=== PATIENT | female | born 1945 | race Caucasian/White ===

== ENCOUNTER 2023-12-21 19:19 | Emergency (ER) | payer MEDICARE, SELFPAY ==
[2023-12-21 19:21] VITALS: BP 132/78
[2023-12-21 20:23] VITALS: BMI 36.0
--- NOTE | 2023-12-21 22:05 | ED.MUSCINJ ---
HPI-Injury
General
Chief Complaint: Fall
Source: patient, ambulance crew and halfway records
Exam Limitations: none
Time Seen by Provider: 12/21/23 21:57
Nursing documentation reviewed up to this point in time: agreed with
Travel History
Have you had any contact with someone who has COVID-19?: No
Do you have any symptoms of coronavirus? Fever > 100 degrees, chills, cough, shortness of breath, sore throat, loss of taste or smell, muscle aches, or headache?: No
History of Present Illness-Injury
Initial Injury comments:
Patient states she lost her footing and fell. Hit head on floor. No LOC. Has hemtoma to posterior scalp. Complains of pain to right shoulder, right lat ribs, right knee and low back. Incident occurred just IN [facility]. Brought to ED via EMS for eval.,
Past History
Past History
ED Past Medical History: CHF, GERD, Hypercholesterolemia, Seizures (EPILEPSY) and Psychiatric (depression, SAH)
ED Past Surgical History: None
Review of Systems
Review of Systems
Allergies reviewed?: Yes
All Other Systems: ROS reviewed and negative except as documented in HPI and ROS
Constitutional: Reports no symptoms
EENT: Reports no symptoms
Respiratory: Reports no symptoms
Cardiac: Reports no symptoms
ABD/GI: Reports no symptoms
: Reports no symptoms
Musculoskeletal: Reports joint pain (pain right shoulder, right lateral ribs, low back, right knee)
Skin: Reports other (hematoma to posterior scalp)
Neurological: Reports no symptoms
Psychiatric: Reports no symptoms
Musculoskeletal Injury Exam
Musculoskeletal Injury Exam
Right Shoulder:
Pain with Movement?: Moderate
Tender to palpation?: Moderate
Soft tissue swelling?: None
External deformity and angulation?: None
Joint effusion?: None
Contusion?: Moderate
Hematoma-local bleeding into tissue?: None
Strain- Sprain- Tear (Connective tissue injury)?: Moderate
Crepitus with movement?: No
Joint instability?: No
Malalignment/deformity?: No
Range of motion: Limited
Distal skin color and temperature: normal-warm & good color
Capillary Refill: normal
Normal distal neurovascular exam?: Yes
Peripheral Pulses: radial (right): 3+
Bilateral Lower Back:
Pain with Movement?: Mild
Tender to palpation?: Mild
Soft tissue swelling?: None
External deformity and angulation?: None
Joint effusion?: None
Contusion?: Mild
Hematoma-local bleeding into tissue?: None
Strain- Sprain- Tear (Connective tissue injury)?: Mild
Crepitus with movement?: No
Malalignment/deformity?: No
Range of motion: Limited
Distal skin color and temperature: normal-warm & good color
Capillary Refill: normal
Normal distal neurovascular exam?: Yes
Right Knee:
Pain with Movement?: Mild
Tender to palpation?: Mild
Soft tissue swelling?: None
External deformity and angulation?: None
Joint effusion?: None
Contusion?: None
Hematoma-local bleeding into tissue?: None
Strain- Sprain- Tear (Connective tissue injury)?: Mild
Crepitus with movement?: No
Joint instability?: No
Malalignment/deformity?: No
Range of motion: Full
Distal skin color and temperature: normal-warm & good color
Capillary Refill: normal
Normal distal neurovascular exam?: Yes
Right Lateral Chest:
Pain with Movement?: Mild
Tender to palpation?: Mild
Soft tissue swelling?: None
External deformity and angulation?: None
Joint effusion?: None
Contusion?: Mild
Hematoma-local bleeding into tissue?: None
Strain- Sprain- Tear (Connective tissue injury)?: None
Crepitus with movement?: No
Joint instability?: No
Malalignment/deformity?: No
Range of motion: Full
Distal skin color and temperature: normal-warm & good color
Capillary Refill: normal
Normal distal neurovascular exam?: Yes
Phy Exam
General Physical Exam
General Presentation: well appearing and no apparent distress
General age: appears stated age
General Skin: warm and dry
General Habitus: normal
Cardiovascular Exam
Cardiovascular Exam: regular rate/rhythm and no edema
Pulmonary Exam
Pulmonary Exam: lungs clear and no respiratory distress
Gastrointestinal Exam
Gastrointestinal Exam: normal bowel sounds, non tender, soft, no organomegaly, non distended and no cva tenderness
Neurological Exam
Neurological Exam: alert, oriented x3, CN II-XII intact, no motor deficits, no sensory deficits and speech normal
Regulo Coma Scale
Eye Opening: Spontaneous
Verbal Response: Oriented
Motor Response: Obeys Commands
GCS Total Score: 15
Musculoskeletal Exam
Musculoskeletal Exam: neuro vasc intact
Skin Exam
Skin Exam: normal color, warm/dry and no rash
Psychiatric Exam
Psychiatric Exam: normal mood/affect
Injury Course
Orders/Labs/Results
Orders:
Orders
12/21/23
Electrocardiogram (*1) Stat
Comment: DONE EMR
12/21/23 19:31
Ribs, Right 3 View W/PA Chest [CR Ribs-right 3 Vw W/pa Chest*] Urgent
Comment:
Reason For Exam: fall
Trauma Shoulder, Right CR [CR Shoulder, Trauma - Right] Urgent
Comment:
Reason For Exam: fall
12/21/23 19:32
CR Knee- Right 4 Or More View* Urgent
Reason For Exam: fall
12/21/23 22:04
CT Head W/o Iv Contrast Urgent
Comment:
Reason For Exam: fall
Cervical Spine wo Contrast CT [CT Cervical Spine W/o Iv Contr] Urgent
Comment:
Reason For Exam: fall
Lumbar Spine Complete, 4 View [CR Lumbar Spine Comp Min 4 Vw*] Urgent
Comment:
Reason For Exam: fall
12/22/23 00:01
Acetaminophen [Tylenol] 1,000 mg PO NOW STA
*Radiology
Radiology exam reviewed: radiology read reviewed
*Pulse Oximetry
Patient hypoxic: no
*Critical Care Note
Total Time (30-74mins, 75-104mins- exclusive of procedures): Not Applicable
ED Attending Note
-
Portions of this chart may have been created with voice recognition software.� Occasional wrong word or��sound alike� substitutions may have occurred due to the inherent limitations of voice recognition software.
Discharge Plan
Departure
Patient Disposition: Home (Routine Discharge)
Date of Disposition: 12/22/23
Time of Disposition: 00:08
Patient with high blood pressure during this ER visit?: No
Condition: Good
Covid-19: Not Applicable
Discharge Problem:
Head injury
Instructions: Head Injury in Adults (DC), Contusion (DC), Preventing falls in adults, shoulder
Prescriptions:
No Action
atorvastatin [Lipitor] 40 mg Tablet
40 mg PO QPM
cetirizine [Zyrtec] 10 mg Tablet
10 mg PO DAILY
oxybutynin chloride 10 mg Tablet Extended Release 24hr
10 mg PO DAILY
phenytoin sodium extended 100 mg Capsule
200 mg PO BID
acetaminophen [Tylenol Extra Strength] 500 mg Tablet
500 mg PO Q6H PRN (Reason: mild pain)
cyanocobalamin (vitamin B-12) 500 mcg Tablet
500 mcg PO BID
furosemide [Lasix] 80 mg Tablet
80 mg PO DAILY
ferrous sulfate 325 mg (65 mg iron) Tablet
325 mg PO DAILY
aspirin 81 mg Tablet,Chewable
81 mg PO DAILY
folic acid 1 mg Tablet
1 mg PO DAILY
allopurinol 300 mg Tablet
300 mg PO BID
ondansetron [Zofran ODT] 4 mg Tablet,Disintegrating
4 mg PO Q8HPRN PRN (Reason: nausea)
fluticasone propionate [Flonase Allergy Relief] 50 mcg/actuation [place],Suspension
2 spray INTRANASAL DAILY
sertraline 50 mg Tablet
50 mg PO DAILY
diclofenac sodium [Voltaren] 1 % Gel
4 g TOPICAL BID
potassium chloride 20 mEq Tablet Extended Release
20 meq PO DAILY
Referrals:
Travis Rivera MD [Active] - Call in 1-3 days for appt
Adele He CRNP [Family Provider] -
Interventions
Interventions:
*Risk Screen - Suicide Last Done: 12/21/23 19:21
*General Assessment Last Done: 12/21/23 19:21
*Neglect/Abuse Screening Last Done: 12/21/23 19:21
*ED COVID-19 Vaccine History Last Done: 12/21/23 19:21
*Nursing Disposition Last Done: 12/22/23 01:03
ED-Musculoskeletal Assessment Last Done: 12/21/23 20:26
ED- Neurological Assessment Last Done: 12/21/23 20:26
ED-Skin Assessment Last Done: 12/21/23 20:26
Discharge Date and Time
Discharge Date/Time: 12/22/23 01:04
[2023-12-21 23:19] VITALS: BP 147/66
[2023-12-22] MEDS: TYLENOL 1000 MG PO (00:38)
== END 2023-12-22 01:04 | disposition home or self-care (01) ==
LOC: EMR 19:19
PROVIDERS: EMERGENCY PHYSICIAN Emergency Medicine; FAMILY PHYSICIAN Nurse Practitioner Family
DX: S43.401A Unspecified sprain of right shoulder joint, initial encounter (principal); S83.91XA Sprain of unspecified site of right knee, initial encounter; S33.5XXA Sprain of ligaments of lumbar spine, initial encounter; S40.011A Contusion of right shoulder, initial encounter; S30.0XXA Contusion of lower back and pelvis, initial encounter; S20.211A Contusion of right front wall of thorax, initial encounter; S00.03XA Contusion of scalp, initial encounter; W18.39XA Other fall on same level, initial encounter; Y92.120 Kitchen in nursing home as the place of occurrence of the external cause; I50.9 Heart failure, unspecified; G40.909 Epilepsy, unspecified, not intractable, without status epilepticus; K21.9 Gastro-esophageal reflux disease without esophagitis; E78.00 Pure hypercholesterolemia, unspecified; F32.A Depression, unspecified; G47.30 Sleep apnea, unspecified; N32.81 Overactive bladder
CPT/HCPCS: 99284; 70450; 71101; 72110; 72125; 73030; 73564; 93005

== ENCOUNTER → 2023-12-28 11:56 | Outpatient (REF) | payer MEDICARE, SELFPAY | LOC: RAD 11:56 | PROVIDERS: ATTENDING PHYSICIAN Internal Medicine | DX: M79.651 Pain in right thigh (principal) | CPT/HCPCS: 73552 ==

== ENCOUNTER 2023-12-29 08:32 | Emergency (ER) | payer MEDICARE, SELFPAY ==
[2023-12-29 08:33] VITALS: BP 159/77
--- NOTE | 2023-12-29 09:12 | ED.GENMED ---
History of Present Illness
General
Chief Complaint: Fall
Source: patient and ambulance crew
Exam Limitations: none
Time Seen by Provider: 12/29/23 08:41
Nursing documentation reviewed up to this point in time: agreed with except (pt denies ankle pain)
Travel History
Have you had any contact with someone who has COVID-19?: No
Do you have any symptoms of coronavirus? Fever > 100 degrees, chills, cough, shortness of breath, sore throat, loss of taste or smell, muscle aches, or headache?: No
History of Present Illness
History of Present Illness:
pt is a 78 y/o F from [facility] after having continued right knee pain an dmore swelling after fall on 12/21. pt was seen here that day. she says she wasn't using her walker and her right knee gave out causing her to fall and land on
her right side. she struck her head
she was seen here and had ct head, xray of knee which were neg.
pt has been walking around using her walker but noticed yesterday that her right knee was more swollen and a litte more painful
she had xrays of femur but doesn't know the results
pt has chronic lymphedema in her legs and says her lower leg swelling is chronic an dnot significantly changed from baseline
she is worried about a blood clot
no meds taken for pain today
Past History
Past History
ED Past Medical History: CHF, GERD, Hypercholesterolemia, Seizures (EPILEPSY) and Psychiatric (depression, SAH)
ED Past Surgical History: None
Review of Systems
Review of Systems
Allergies reviewed?: Yes
All Other Systems: Not applicable
Phy Exam
Physical Exam
Physical Exam:
GENERAL: Alert , in no apparent distress, comfortable at rest
HEAD: NCAT
CV: chronic lymphedema b/l
NEUROLOGICAL: Alert and oriented, no focal neuro deficits, , 5/5 strength, sensation intact,
SKIN: Warm and dry, slight b/l LE pink skin changes; not warm
MUSCULOSKELETAL: Right hip nontender, right femur, nontender, right knee moderately swollen, limited painful flexion, patient is able to straight leg raise only 10 degrees off the bed but her legs are large due to her lymphedema and not even on the
opposite side she cannot fully straight leg raise, the lower extremity has moderate to severe swelling especially within her upper calf and then she has a more narrow ankle and then more edema in her foot. This apparently is normal for her. She
has no tenderness
There is no tenderness to either ankle, foot
PSYCH: Normal and appropriate interaction.
Course
Orders/Labs/Results
Orders:
Orders
12/29/23 09:07
Acetaminophen [Tylenol] 650 mg PO NOW STA
CR Knee- Right 4 Or More View* Urgent
Comment:
Reason For Exam: right knee pain after fall, worsening
Venous Doppler Lwr Ext Rt [[facility] Venous LOWER Ext RT] Urgent
Comment:
Reason For Exam: right leg sweling after fall, h/o lymphedema
Vital Signs
Initial and Last Documented VS:
Initial Vital Signs
Temp Pulse Resp BP Pulse Ox
98.3 F 85 16 159/77 97
12/29/23 08:33 12/29/23 08:33 12/29/23 08:33 12/29/23 08:33 12/29/23 08:33
Last Documented Vital Signs
Temp Pulse Resp BP Pulse Ox
98.3 F 76 20 122/76 98
12/29/23 08:33 12/29/23 11:48 12/29/23 11:48 12/29/23 11:48 12/29/23 11:48
MDM/Problems Addressed
Differential Diagnosis Includes:
Knee injury, ambulatory dysfunction, meniscal tear
MDM/Problems Addressed:
78-year-old female with persistent right knee pain after a fall on 2�16. She initially had x-rays showing no obvious trauma, there is chronic arthritic changes . She was able to walk on it a little bit better but has had worsening pain over the
last 2 days. Now she is more swollen in the knee area. She has chronic lymphedema making it difficult to assess her lower extremity swelling but she does not feel like it is any change from baseline on exam the patient has swelling of the knee
without any overlying skin changes, she does have painful limited flexion of the knee, and I am able to passively range her with discomfort, 10 to 20 degrees, she has limited straight leg raise on, this may be due to body habitus. Patient's x-ray
shows chronic arthritic changes plus a possibly likely chronic medial meniscal tear; pt was able to get up and take steps slowly with walker; no dvt on US; pt can be discharged to faciliyt with ortho f/u and use of wheelchair while it is difficult
tow alk;
*Critical Care Note
Total Time (30-74mins, 75-104mins- exclusive of procedures): Not Applicable
ED Attending Note
-
Portions of this chart may have been created with voice recognition software.� Occasional wrong word or��sound alike� substitutions may have occurred due to the inherent limitations of voice recognition software.
Discharge Plan
Departure
Patient Disposition: [facility]sp/SNF
Date of Disposition: 12/29/23
Time of Disposition: 11:26
Patient with high blood pressure during this ER visit?: Yes
Condition: Fair
Covid-19: Not Applicable
Discharge Problem:
Effusion of knee, Arthritis of knee, Chronic meniscal tear of knee
Instructions: Chronic Knee Pain (DC)
Prescriptions:
No Action
atorvastatin [Lipitor] 40 mg Tablet
40 mg PO QPM
cetirizine [Zyrtec] 10 mg Tablet
10 mg PO DAILY
oxybutynin chloride 10 mg Tablet Extended Release 24hr
10 mg PO DAILY
phenytoin sodium extended 100 mg Capsule
200 mg PO BID
acetaminophen [Tylenol Extra Strength] 500 mg Tablet
500 mg PO Q6H PRN (Reason: mild pain)
cyanocobalamin (vitamin B-12) 500 mcg Tablet
500 mcg PO BID
furosemide [Lasix] 80 mg Tablet
80 mg PO DAILY
ferrous sulfate 325 mg (65 mg iron) Tablet
325 mg PO DAILY
aspirin 81 mg Tablet,Chewable
81 mg PO DAILY
folic acid 1 mg Tablet
1 mg PO DAILY
allopurinol 300 mg Tablet
300 mg PO BID
ondansetron [Zofran ODT] 4 mg Tablet,Disintegrating
4 mg PO Q8HPRN PRN (Reason: nausea)
fluticasone propionate [Flonase Allergy Relief] 50 mcg/actuation [place],Suspension
2 spray INTRANASAL DAILY
sertraline 50 mg Tablet
50 mg PO DAILY
diclofenac sodium [Voltaren] 1 % Gel
4 g TOPICAL BID
potassium chloride 20 mEq Tablet Extended Release
20 meq PO DAILY
Referrals:
BRITNI ZHANG MD [Family Provider] -
Activity Restrictions/Additional Instructions:
Patrizia has no fractures but she has severe arthritis and she probably has a meniscal tear which was seen on x-ray. There is no clot in the leg. Tylenol every 6 hours as needed for pain and follow-up with orthopedics as recommended. While she is in
this amount of discomfort she should use her wheelchair more. She was able to stand and walk with a walker
Interventions
Interventions:
*Risk Screen - Suicide Last Done: 12/29/23 09:30
*General Assessment Last Done: 12/29/23 09:30
*Neglect/Abuse Screening Last Done: 12/29/23 09:30
*ED COVID-19 Vaccine History Last Done: 12/29/23 08:33
*Nursing Disposition Last Done: 12/29/23 11:57
ED-Musculoskeletal Assessment Last Done: 12/29/23 09:30
ED- Neurological Assessment Last Done: 12/29/23 09:30
ED-Skin Assessment Last Done: 12/29/23 09:30
Discharge Date and Time
Discharge Date/Time: 12/29/23 11:58
[2023-12-29] MEDS: TYLENOL 650 MG PO (10:36)
[2023-12-29 11:48] VITALS: BP 122/76
== END 2023-12-29 11:58 ==
LOC: EMR 08:32
PROVIDERS: EMERGENCY PHYSICIAN Emergency Medicine; FAMILY PHYSICIAN Internal Medicine
DX: M25.461 Effusion, right knee (principal); M79.604 Pain in right leg; M17.11 Unilateral primary osteoarthritis, right knee; M23.203 Derangement of unspecified medial meniscus due to old tear or injury, right knee; W19.XXXA Unspecified fall, initial encounter; R03.0 Elevated blood-pressure reading, without diagnosis of hypertension; I89.0 Lymphedema, not elsewhere classified; I50.9 Heart failure, unspecified; K21.9 Gastro-esophageal reflux disease without esophagitis; E78.00 Pure hypercholesterolemia, unspecified; F32.A Depression, unspecified; G40.909 Epilepsy, unspecified, not intractable, without status epilepticus; G47.30 Sleep apnea, unspecified; N32.81 Overactive bladder; Z79.82 Long term (current) use of aspirin; Z88.2 Allergy status to sulfonamides; Z88.1 Allergy status to other antibiotic agents; Z91.030 Bee allergy status
CPT/HCPCS: 99284; 73564; 93971

== ENCOUNTER → 2024-01-07 13:32 | Outpatient (REF) | payer OTHER, SELFPAY ==
[2024-01-07 14:05] LABS: % Basophils 0.6 % (0-2); % Eosinophils 7.6 % (0-6); % Immature Granulocytes 0.6 % (0-0.5); % Lymphocytes 24.2 % (20.5-51.1); % Monocytes 11.3 % (1.7-9.3); % Neutrophils 55.7 % (42.2-75.2); Absolute Eosinophils 0.5 10^3/uL (0-0.7); Absolute Lymphocytes 1.6 10^3/uL (1.2-3.4); Absolute Monocytes 0.7 10^3/uL (0.1-0.6); Absolute Neutrophils 3.6 10^3/uL (1.4-6.5); Hematocrit 29.2 % (37.0-47.0); Hemoglobin 9.8 g/dL (12.0-16.0); Mean Corp Hgb Conc. 33.6 g/dL (33.0-37.0); Mean Corpuscular Hgb 31.9 pg (27.0-31.0); Mean Corpuscular Volume 95.1 fL (81.0-99.0); Mean Platelet Volume 11.2 fL (7.4-10.4); Nucleated Red Blood Cells % 0 %; Platelet Count 208 10^3/uL (130-400); Red Blood Cell Count 3.07 10^6/uL (4.20-5.40); Red Cell Dist. Width 15.7 % (11.5-14.5); White Blood Cell Count 6.4 10^3/uL (4.8-10.8)
[2024-01-07 14:31] LABS: Blood Urea Nitrogen 33 mg/dl (7-17); Calcium 8.5 mg/dl (8.4-10.2); Carbon Dioxide 26 mmol/L (22-30); Chloride 101 mmol/L (98-107); Glucose 100 mg/dl (70-99); Potassium 3.8 mmol/L (3.5-5.1); Sodium 133 mmol/L (135-145); eGFR 51.11
== END ==
LOC: OLABP 13:32
PROVIDERS: ATTENDING PHYSICIAN Family Medicine
DX: G40.901 Epilepsy, unspecified, not intractable, with status epilepticus (principal); S72.111D Displaced fracture of greater trochanter of right femur, subsequent encounter for closed fracture with routine healing; J90 Pleural effusion, not elsewhere classified; I50.9 Heart failure, unspecified
CPT/HCPCS: 36415; 80048; 85025

== ENCOUNTER → 2024-04-08 11:50 | Outpatient (REF) | payer OTHER, SELFPAY ==
[2024-04-08 13:09] LABS: Hemoglobin 9.3 g/dL (12.0-16.0); Mean Corp Hgb Conc. 33.2 g/dL (33.0-37.0); Mean Corpuscular Hgb 33.2 pg (27.0-31.0); Mean Platelet Volume 11.4 fL (7.4-10.4); Platelet Count 220 10^3/uL (130-400); Red Cell Dist. Width 15.7 % (11.5-14.5); White Blood Cell Count 6.9 10^3/uL (4.8-10.8)
[2024-04-08 13:41] LABS: Blood Urea Nitrogen 35 mg/dl (7-17); Calcium 8.6 mg/dl (8.4-10.2); Carbon Dioxide 31 mmol/L (22-30); Chloride 100 mmol/L (98-107); Glucose 112 mg/dl (70-99); Potassium 4.2 mmol/L (3.5-5.1); Sodium 137 mmol/L (135-145); eGFR 57.31
== END ==
LOC: OLABP 11:50
PROVIDERS: ATTENDING PHYSICIAN Family Medicine
DX: N39.0 Urinary tract infection, site not specified (principal); H81.10 Benign paroxysmal vertigo, unspecified ear; E87.6 Hypokalemia; R07.89 Other chest pain; I50.32 Chronic diastolic (congestive) heart failure; E83.52 Hypercalcemia; M62.81 Muscle weakness (generalized); I87.2 Venous insufficiency (chronic) (peripheral); I10 Essential (primary) hypertension
CPT/HCPCS: 36415; 80048; 85027

== ENCOUNTER → 2024-04-11 17:07 | Outpatient (REF) | payer OTHER, SELFPAY ==
[2024-04-11 18:38] LABS: Dilantin 32.2 ug/ml (10-20)
== END ==
LOC: OLABP 17:07
PROVIDERS: ATTENDING PHYSICIAN Family Medicine
DX: H81.10 Benign paroxysmal vertigo, unspecified ear (principal); E83.52 Hypercalcemia; M62.81 Muscle weakness (generalized); I10 Essential (primary) hypertension
CPT/HCPCS: 36415; 80185

== ENCOUNTER → 2024-07-30 11:14 | Outpatient (REF) | payer MEDICARE, SELFPAY | LOC: HWRAD 11:14 | PROVIDERS: ATTENDING PHYSICIAN Orthopaedic Surgery Hand Surgery; FAMILY PHYSICIAN Family Medicine | DX: S42.291K Other displaced fracture of upper end of right humerus, subsequent encounter for fracture with nonunion (principal) | CPT/HCPCS: 73200 ==

== ENCOUNTER → 2024-11-12 10:47 | Outpatient (REF) | payer OTHER, SELFPAY ==
--- NOTE | 2024-11-13 20:18 | EEGC.RPT ---
Continuous EEG Report
Recording
Start Date of Data Reviewed: 11/12/24
End Date of Data Reviewed: 11/12/24
Done with Video Recording: Yes
Electrocardiogram: Unremarkable
Report
�TECHNICAL REMARKS:��This is a technically satisfactory eighteen channel record employing 21 disc electrodes applied according to a measured international 10-20 electrode placement system.��There were no significant technical difficulties.��The
study was done on a [employer] System.
�
CLINICAL INFORMATION: This is an 81-year-old woman with history of seizures. �This study was requested to look for epileptiform activity.
STUDY DURATION:� 29 min,�35 secs
�
MEDICATIONS: Phenytoin, Sertraline
�
REPORT: �At the onset of the EEG, the patient is awake. The background activity consists of 9-10Hz, persistent, posteriorly dominant, moderate amplitude, symmetric, and rhythmic activity. Anteriorly, it consists of a mixture of low voltage
indeterminate activity and 20-25 Hz, persistent, low amplitude, symmetric, and rhythmic activity. Intermittent generalized 1.5-2 Hz 15-20 microvolts activity lasting for 1-2 seconds with maximal amplitude in the bifrontal area is present. Stepwise
intermittent photic stimulation (1-31 Hz) does not induce any abnormalities. Hyperventilation is not performed. Drowsiness is characterized by low amplitude mixed frequency activity, roving eye movements, and decreased eye blinking and muscle
artifact.
�
IMPRESSION: �This is an abnormal awake and drowsy EEG due to a background slowing and intermittent diffuse slowing indicating the presence of a moderate encephalopathy, but nonspecific in terms of etiology. There is no evidence of focal slowing or
epileptiform activity.
== END ==
LOC: RCS 10:47
PROVIDERS: ATTENDING PHYSICIAN Psychiatry & Neurology Neurology; FAMILY PHYSICIAN Nurse Practitioner Family
DX: R56.9 Unspecified convulsions (principal)
CPT/HCPCS: 95816

== ENCOUNTER → 2024-12-08 12:47 | Outpatient (REF) | payer OTHER, SELFPAY | LOC: MRI 3T 12:47 | PROVIDERS: ATTENDING PHYSICIAN Psychiatry & Neurology Neurology | DX: R29.6 Repeated falls (principal) | CPT/HCPCS: 70551 ==

== ENCOUNTER → 2025-03-31 11:05 | Outpatient (REF) | payer BC, OTHER, SELFPAY ==
[2025-03-31 13:12] LABS: % Basophils 0.5 % (0-2); % Eosinophils 7.4 % (0-6); % Immature Granulocytes 0.4 % (0-0.5); % Lymphocytes 32.4 % (20.5-51.1); % Monocytes 7.3 % (1.7-9.3); Absolute Basophils 0.1 10^3/uL (0-0.2); Absolute Eosinophils 0.7 10^3/uL (0-0.7); Absolute Monocytes 0.7 10^3/uL (0.1-0.6); Absolute Neutrophils 4.8 10^3/uL (1.4-6.5); Hematocrit 25.4 % (37.0-47.0); Hemoglobin 8.4 g/dL (12.0-16.0); Mean Corp Hgb Conc. 33.1 g/dL (33.0-37.0); Mean Corpuscular Hgb 33.3 pg (27.0-31.0); Mean Corpuscular Volume 100.8 fL (81.0-99.0); Mean Platelet Volume 11.1 fL (7.4-10.4); Nucleated Red Blood Cells % 0 %; Platelet Count 220 10^3/uL (130-400); Red Blood Cell Count 2.52 10^6/uL (4.20-5.40); Red Cell Dist. Width 16.2 % (11.5-14.5); White Blood Cell Count 9.2 10^3/uL (4.8-10.8)
[2025-03-31 13:25] LABS: Blood Urea Nitrogen 23 mg/dl (7-17); Calcium 8.6 mg/dl (8.4-10.2); Carbon Dioxide 29 mmol/L (22-30); Chloride 106 mmol/L (98-107); Glucose 117 mg/dl (70-99); Potassium 4.1 mmol/L (3.5-5.1); Sodium 138 mmol/L (135-145); eGFR > 60.00
== END ==
LOC: OLABP 11:05
PROVIDERS: ATTENDING PHYSICIAN Family Medicine
DX: M16.12 Unilateral primary osteoarthritis, left hip (principal); I87.2 Venous insufficiency (chronic) (peripheral); I50.32 Chronic diastolic (congestive) heart failure; H81.10 Benign paroxysmal vertigo, unspecified ear; M10.9 Gout, unspecified; I10 Essential (primary) hypertension
CPT/HCPCS: 36415; 80048; 85025

== ENCOUNTER → 2025-04-07 13:00 | Outpatient (REF) | payer BC, OTHER, SELFPAY ==
[2025-04-07 13:23] LABS: % Basophils 0.8 % (0-2); % Eosinophils 7.3 % (0-6); % Immature Granulocytes 0.3 % (0-0.5); % Lymphocytes 38.2 % (20.5-51.1); % Monocytes 8.3 % (1.7-9.3); % Neutrophils 45.1 % (42.2-75.2); Absolute Basophils 0.1 10^3/uL (0-0.2); Absolute Eosinophils 0.6 10^3/uL (0-0.7); Absolute Lymphocytes 2.9 10^3/uL (1.2-3.4); Absolute Monocytes 0.6 10^3/uL (0.1-0.6); Absolute Neutrophils 3.5 10^3/uL (1.4-6.5); Hematocrit 28.3 % (37.0-47.0); Hemoglobin 9.1 g/dL (12.0-16.0); Mean Corp Hgb Conc. 32.2 g/dL (33.0-37.0); Mean Corpuscular Hgb 33.2 pg (27.0-31.0); Mean Corpuscular Volume 103.3 fL (81.0-99.0); Mean Platelet Volume 10.5 fL (7.4-10.4); Nucleated Red Blood Cells % 0 %; Platelet Count 254 10^3/uL (130-400); Red Blood Cell Count 2.74 10^6/uL (4.20-5.40); Red Cell Dist. Width 17.1 % (11.5-14.5); White Blood Cell Count 7.7 10^3/uL (4.8-10.8)
== END ==
LOC: OLABP 13:00
PROVIDERS: ATTENDING PHYSICIAN Family Medicine
DX: M16.12 Unilateral primary osteoarthritis, left hip (principal); I87.2 Venous insufficiency (chronic) (peripheral); I50.32 Chronic diastolic (congestive) heart failure; I10 Essential (primary) hypertension; S32.501A Unspecified fracture of right pubis, initial encounter for closed fracture; S42.91XA Fracture of right shoulder girdle, part unspecified, initial encounter for closed fracture
CPT/HCPCS: 36415; 85025

== ENCOUNTER → 2025-04-16 11:42 | Outpatient (REF) | payer BC, OTHER, SELFPAY ==
[2025-04-16 13:34] LABS: % Basophils 0.7 % (0-2); % Eosinophils 8.8 % (0-6); % Immature Granulocytes 0.1 % (0-0.5); % Lymphocytes 31.2 % (20.5-51.1); % Monocytes 7.2 % (1.7-9.3); Absolute Basophils 0.1 10^3/uL (0-0.2); Absolute Eosinophils 0.6 10^3/uL (0-0.7); Absolute Lymphocytes 2.2 10^3/uL (1.2-3.4); Absolute Monocytes 0.5 10^3/uL (0.1-0.6); Absolute Neutrophils 3.7 10^3/uL (1.4-6.5); Hematocrit 27.1 % (37.0-47.0); Hemoglobin 8.8 g/dL (12.0-16.0); Mean Corp Hgb Conc. 32.5 g/dL (33.0-37.0); Mean Corpuscular Hgb 33.1 pg (27.0-31.0); Mean Corpuscular Volume 101.9 fL (81.0-99.0); Mean Platelet Volume 10.2 fL (7.4-10.4); Nucleated Red Blood Cells % 0 %; Platelet Count 210 10^3/uL (130-400); Red Blood Cell Count 2.66 10^6/uL (4.20-5.40); Red Cell Dist. Width 16.4 % (11.5-14.5); White Blood Cell Count 7.1 10^3/uL (4.8-10.8)
== END ==
LOC: OLABP 11:42
PROVIDERS: ATTENDING PHYSICIAN Family Medicine
DX: S32.501A Unspecified fracture of right pubis, initial encounter for closed fracture (principal); S32.039A Unspecified fracture of third lumbar vertebra, initial encounter for closed fracture; M16.12 Unilateral primary osteoarthritis, left hip; I87.2 Venous insufficiency (chronic) (peripheral); I50.32 Chronic diastolic (congestive) heart failure; H81.10 Benign paroxysmal vertigo, unspecified ear; M10.9 Gout, unspecified; I10 Essential (primary) hypertension
CPT/HCPCS: 36415; 85025

== ENCOUNTER → 2025-04-21 11:34 | Outpatient (REF) | payer BC, OTHER, SELFPAY ==
[2025-04-21 11:48] LABS: % Basophils 1.2 % (0-2); % Eosinophils 9.7 % (0-6); % Immature Granulocytes 0.1 % (0-0.5); % Lymphocytes 33.3 % (20.5-51.1); % Monocytes 6.9 % (1.7-9.3); % Neutrophils 48.8 % (42.2-75.2); Absolute Basophils 0.1 10^3/uL (0-0.2); Absolute Eosinophils 0.7 10^3/uL (0-0.7); Absolute Lymphocytes 2.2 10^3/uL (1.2-3.4); Absolute Monocytes 0.5 10^3/uL (0.1-0.6); Absolute Neutrophils 3.3 10^3/uL (1.4-6.5); Hematocrit 25.1 % (37.0-47.0); Hemoglobin 8.6 g/dL (12.0-16.0); Mean Corp Hgb Conc. 34.3 g/dL (33.0-37.0); Mean Corpuscular Hgb 34.5 pg (27.0-31.0); Mean Corpuscular Volume 100.8 fL (81.0-99.0); Mean Platelet Volume 11.4 fL (7.4-10.4); Nucleated Red Blood Cells % 0 %; Platelet Count 178 10^3/uL (130-400); Red Blood Cell Count 2.49 10^6/uL (4.20-5.40); Red Cell Dist. Width 15.8 % (11.5-14.5); White Blood Cell Count 6.7 10^3/uL (4.8-10.8)
== END ==
LOC: OLABP 11:34
PROVIDERS: ATTENDING PHYSICIAN Family Medicine
DX: M16.12 Unilateral primary osteoarthritis, left hip (principal); I87.2 Venous insufficiency (chronic) (peripheral); I10 Essential (primary) hypertension
CPT/HCPCS: 36415; 85025

== ENCOUNTER → 2025-04-22 11:30 | Outpatient (REF) | payer BC, OTHER, SELFPAY ==
[2025-04-22 12:35] LABS: Blood Urea Nitrogen 29 mg/dl (7-17); Calcium 8.7 mg/dl (8.4-10.2); Carbon Dioxide 29 mmol/L (22-30); Chloride 107 mmol/L (98-107); Glucose 113 mg/dl (70-99); Potassium 4.4 mmol/L (3.5-5.1); Sodium 140 mmol/L (135-145); eGFR 56.95
== END ==
LOC: OLABP 11:30
PROVIDERS: ATTENDING PHYSICIAN Family Medicine
DX: M16.12 Unilateral primary osteoarthritis, left hip (principal); I87.2 Venous insufficiency (chronic) (peripheral); I50.32 Chronic diastolic (congestive) heart failure; H81.10 Benign paroxysmal vertigo, unspecified ear; M10.9 Gout, unspecified; I10 Essential (primary) hypertension
CPT/HCPCS: 36415; 80048

== ENCOUNTER → 2025-06-18 12:57 | Outpatient (REF) | payer OTHER, SELFPAY | LOC: RCS 12:57 | PROVIDERS: ATTENDING PHYSICIAN Student in an Organized Health Care Education/Training Program; FAMILY PHYSICIAN Internal Medicine | DX: R06.09 Other forms of dyspnea (principal) | CPT/HCPCS: 93306 ==

== ENCOUNTER 2025-06-22 13:55 | Emergency (ER) | payer OTHER, SELFPAY ==
[2025-06-22 14:04] VITALS: BP 134/94
[2025-06-22 15:40] VITALS: BP 156/77
--- NOTE | 2025-06-22 19:20 | ED.GENMED ---
History of Present Illness
General
Chief Complaint: Fall
Source: patient
Exam Limitations: none
Time Seen by Provider: 06/22/25 19:14
Nursing documentation reviewed up to this point in time: agreed with
History of Present Illness
History of Present Illness:
Patient presents to ED from alf secondary to fall onto her right side, hitting the cabinet in the process. Patient reports hitting her head when she fell. Patient presents with bruising noted on the right side of her head. Denies neck
pain. Denies blurred vision. Denies dizziness. Denies loss of consciousness. Denies loss of sensation or weakness. Patient at baseline ambulates with use of walker or cane. Patient does not take any blood thinning medications.
Past History
Past History
ED Past Medical History: CHF, GERD, Hypercholesterolemia, Seizures (EPILEPSY) and Psychiatric (depression, SAH)
ED Past Surgical History: None
Review of Systems
Review of Systems
Allergies reviewed?: Yes
All Other Systems: ROS reviewed and negative except as documented in HPI and ROS
Constitutional: Reports no symptoms
EENT: Reports no symptoms
Respiratory: Reports no symptoms
Cardiac: Reports no symptoms
ABD/GI: Reports no symptoms
Musculoskeletal: Reports no symptoms; Denies neck pain
Skin: Reports other (Bruising)
Neurological: Reports no symptoms; Denies dizzy, headache or weakness
Phy Exam
Physical Exam
Physical Exam:
Physical Exam
General: no apparent distress, not acutely ill. afebrile
Head: mild swelling/abrasion noted over right scalp without active bleeding
Neck: supple. normal range of motion
Heart: s1/s2 regular rate and rhythm
Lungs: no acute respiratory distress. clear bilaterally
Abdomen: normal bowel sounds. not tender.
Neuro: alert and oriented x 3. no focal neurological deficits
Skin: no rash
Psychiatric: well kept. interactive and cooperative
Extremities: no edema. no calf tenderness.
Course
Orders/Labs/Results
Orders:
Orders
06/22/25 14:07
CT Cervical Spine W/o Iv Contr Urgent
Comment:
Reason For Exam: Fall, +headstrike
CT Head W/o Iv Contrast Urgent
Comment:
Reason For Exam: Fall, +headstrike
06/22/25 19:20
Acetaminophen [Tylenol] 650 mg PO NOW STA
Vital Signs
Initial and Last Documented VS:
Initial Vital Signs
Temp Pulse Resp BP Pulse Ox
97.5 F 71 18 134/94 97
06/22/25 14:04 06/22/25 14:04 06/22/25 14:04 06/22/25 14:04 06/22/25 14:04
Last Documented Vital Signs
Temp Pulse Resp BP Pulse Ox
97.5 F 72 20 159/87 96
06/22/25 14:04 06/22/25 21:40 06/22/25 21:40 06/22/25 21:40 06/22/25 21:40
MDM/Problems Addressed
MDM/Problems Addressed:
CT head/cervical spine: No acute findings noted.
History and exam consistent with likely mechanical fall resulting in scalp hematoma. No open wound requiring closure at this time. Patient will be discharged back to assisted living for continual evaluation and treatment.
*Pulse Oximetry
SaO2: 98
Oxygen Mode of Delivery: Room air
Patient hypoxic: no
*Critical Care Note
Total Time (30-74mins, 75-104mins- exclusive of procedures): Not Applicable
ED Attending Note
-
Portions of this chart may have been created with voice recognition software.� Occasional wrong word or��sound alike� substitutions may have occurred due to the inherent limitations of voice recognition software.
Discharge Plan
Departure
Patient Disposition: Correction/SNF
Date of Disposition: 06/22/25
Time of Disposition: 19:23
Patient with high blood pressure during this ER visit?: Yes
Discharge Problem:
Contusion
Instructions: Contusion (DC)
Prescriptions:
No Action
atorvastatin [Lipitor] 40 mg Tablet
40 mg PO QPM
cetirizine [Zyrtec] 10 mg Tablet
10 mg PO DAILY
oxybutynin chloride 10 mg Tablet Extended Release 24hr
10 mg PO DAILY
phenytoin sodium extended 100 mg Capsule
200 mg PO BID
acetaminophen [Tylenol Extra Strength] 500 mg Tablet
500 mg PO Q6H PRN (Reason: mild pain)
cyanocobalamin (vitamin B-12) 500 mcg Tablet
500 mcg PO BID
furosemide [Lasix] 80 mg Tablet
80 mg PO DAILY
ferrous sulfate 325 mg (65 mg iron) Tablet
325 mg PO DAILY
aspirin 81 mg Tablet,Chewable
81 mg PO DAILY
folic acid 1 mg Tablet
1 mg PO DAILY
allopurinol 300 mg Tablet
300 mg PO BID
ondansetron [Zofran ODT] 4 mg Tablet,Disintegrating
4 mg PO Q8HPRN PRN (Reason: nausea)
fluticasone propionate [Flonase Allergy Relief] 50 mcg/actuation [place],Suspension
2 spray INTRANASAL DAILY
sertraline 50 mg Tablet
50 mg PO DAILY
diclofenac sodium [Voltaren] 1 % Gel
4 g TOPICAL BID
potassium chloride 20 mEq Tablet Extended Release
20 meq PO DAILY
Activity Restrictions/Additional Instructions:
As discussed, please follow-up with your primary care physician with any further concerns. Please consider return to ED with worsening symptoms, ie. headache/vomiting/weakness
Interventions
Interventions:
*Risk Screen - Suicide Last Done: 06/22/25 14:04
*General Assessment Last Done: 06/22/25 19:52
*Neglect/Abuse Screening Last Done: 06/22/25 19:52
*ED- Fall Risk Assessment Last Done: 06/22/25 19:52
*ED COVID-19 Vaccine History Last Done: 06/22/25 19:52
*Nursing Disposition Last Done: 06/22/25 21:40
ED-Musculoskeletal Assessment Last Done: 06/22/25 19:52
ED- Neurological Assessment Last Done: 06/22/25 19:52
ED-Skin Assessment Last Done: 06/22/25 19:52
Discharge Date and Time
Discharge Date/Time: 06/22/25 21:41
Print Language: [email or web address]
[2025-06-22] MEDS: TYLENOL 650 MG PO (19:43)
[2025-06-22 21:40] VITALS: BP 159/87
== END 2025-06-22 21:41 ==
LOC: EMR 13:55
PROVIDERS: EMERGENCY PHYSICIAN Emergency Medicine; FAMILY PHYSICIAN Internal Medicine
DX: S00.03XA Contusion of scalp, initial encounter (principal); W18.39XA Other fall on same level, initial encounter; W22.09XA Striking against other stationary object, initial encounter; E78.00 Pure hypercholesterolemia, unspecified; G40.909 Epilepsy, unspecified, not intractable, without status epilepticus; I50.9 Heart failure, unspecified
CPT/HCPCS: 99284; 70450; 72125

== ENCOUNTER 2025-06-26 12:32 | Emergency (ER) | payer OTHER, SELFPAY ==
[2025-06-26 12:36] VITALS: BP 154/71; BMI 35.3
[2025-06-26 13:00] VITALS: BP 136/50
[2025-06-26 14:00] VITALS: BP 116/27
[2025-06-26 15:00] VITALS: BP 129/60
[2025-06-26 15:53] VITALS: BP 129/60; O2SAT 95
--- NOTE | 2025-06-26 16:04 | ED.GENMED ---
History of Present Illness
General
Chief Complaint: Fall
Source: patient
Exam Limitations: none
Time Seen by Provider: 06/26/25 13:29
Nursing documentation reviewed up to this point in time: agreed with
History of Present Illness
History of Present Illness:
79-year-old female patient with history of seizure CHF hyperlipidemia presenting to the emergency department today with concerns of ongoing right sided knee pain after an assist to the floor 2 days ago. Did have some bruising to the area this
morning which prompted her to come to the ER for assessment. She denies any additional concerns at this point.
Past History
Past History
ED Past Medical History: CHF, GERD, Hypercholesterolemia, Seizures (EPILEPSY) and Psychiatric (depression, SAH)
ED Past Surgical History: None
Review of Systems
Review of Systems
Allergies reviewed?: Yes
All Other Systems: ROS reviewed and negative except as documented in HPI and ROS
Phy Exam
Physical Exam
Physical Exam:
GENERAL: Alert , in no apparent distress
EYE: pupils equal and reactive
NECK: Supple, no significant adenopathy.
ENT: o/p clr, mmm.
CARDIAC: Regular rate and rhythm .
LUNGS: Clear breath sounds bilaterally, no acute respiratory distress, no wheezes/rales/rhonchi
ABDOMEN: Soft, without focal tenderness, no r/g, no cvat
NEUROLOGICAL: Alert and oriented, no focal neuro deficits
SKIN: Warm and dry, skin intact.
MUSCULOSKELETAL: Vague bruising to the right lateral knee able to range fully at the knee no significant tenderness to palpation throughout the knee. Good range of motion of the ankle and hip. No edema, well perfused.
PSYCH: Normal and appropriate interaction.
Course
Orders/Labs/Results
Orders:
Orders
06/26/25 14:51
Harley Wrap Right-Treatment ONCE
CR Knee- Right 4 Or More View* Urgent
Comment:
Reason For Exam: knee pain after fall
Pt Eval And Treat Urgent
Treatment: fall a few days ago, knee pain since. getting xray but unlikely to show fx
Activity Level: Ambulate
Vital Signs
Initial and Last Documented VS:
Initial Vital Signs
Temp Pulse Resp BP Pulse Ox
98.8 F 69 14 154/71 95
06/26/25 12:36 06/26/25 12:36 06/26/25 12:36 06/26/25 12:36 06/26/25 12:36
Last Documented Vital Signs
Temp Pulse Resp BP Pulse Ox
98.8 F 61 16 129/60 93
06/26/25 12:36 06/26/25 15:00 06/26/25 15:00 06/26/25 15:00 06/26/25 15:00
MDM/Problems Addressed
MDM/Problems Addressed:
79-year-old female presenting with concerns of right knee pain. Uneventful assist of the floor 2 days ago but no other known trauma. She denies any specific trauma. Here vital signs are normal patient no distress neurovascularly intact on
examination. Some mild bruising to the right knee but good range of motion no tenderness to palpation. X-ray showing severe advanced arthritis but no emergent fracture. Patient able to ambulate here with assist. Plan to discharge back to nursing
facility. Return precautions given.
*Pulse Oximetry
SaO2: 93
Oxygen Mode of Delivery: Room air
Patient hypoxic: no (93)
*Critical Care Note
Total Time (30-74mins, 75-104mins- exclusive of procedures): Not Applicable
ED Attending Note
-
Portions of this chart may have been created with voice recognition software.� Occasional wrong word or��sound alike� substitutions may have occurred due to the inherent limitations of voice recognition software.
Discharge Plan
Departure
Patient Disposition: Home (Routine Discharge)
Date of Disposition: 06/26/25
Time of Disposition: 16:06
Patient with high blood pressure during this ER visit?: No
Condition: Good
Covid-19: Not Applicable
Discharge Problem:
Right knee sprain
Instructions: Sprain
Prescriptions:
No Action
atorvastatin [Lipitor] 40 mg Tablet
40 mg PO QPM
cetirizine [Zyrtec] 10 mg Tablet
10 mg PO DAILY
oxybutynin chloride 10 mg Tablet Extended Release 24hr
10 mg PO DAILY
phenytoin sodium extended 100 mg Capsule
200 mg PO BID
acetaminophen [Tylenol Extra Strength] 500 mg Tablet
500 mg PO Q6H PRN (Reason: mild pain)
cyanocobalamin (vitamin B-12) 500 mcg Tablet
500 mcg PO BID
furosemide [Lasix] 80 mg Tablet
80 mg PO DAILY
ferrous sulfate 325 mg (65 mg iron) Tablet
325 mg PO DAILY
aspirin 81 mg Tablet,Chewable
81 mg PO DAILY
folic acid 1 mg Tablet
1 mg PO DAILY
allopurinol 300 mg Tablet
300 mg PO BID
ondansetron [Zofran ODT] 4 mg Tablet,Disintegrating
4 mg PO Q8HPRN PRN (Reason: nausea)
fluticasone propionate [Flonase Allergy Relief] 50 mcg/actuation [place],Suspension
2 spray INTRANASAL DAILY
sertraline 50 mg Tablet
50 mg PO DAILY
diclofenac sodium [Voltaren] 1 % Gel
4 g TOPICAL BID
potassium chloride 20 mEq Tablet Extended Release
20 meq PO DAILY
Referrals:
BRITNI ZHANG MD [Family Provider, Internal Medicine]
Kunal Roldan MD [Active, Orthopedics] - Follow up in 10 days
Activity Restrictions/Additional Instructions:
You came to the emergency department today with concerns of knee pain. Your x-ray did not show any broken bones but did show advanced arthritis. Please rest ice compress and elevate to help with symptoms and follow-up closely with PT and
orthopedics. Return for any worsening, new or concerning symptoms.
Interventions
Interventions:
*Risk Screen - Suicide Last Done: 06/26/25 12:36
*General Assessment Last Done: 06/26/25 12:36
*Neglect/Abuse Screening Last Done: 06/26/25 12:36
*ED- Fall Risk Assessment Last Done: 06/26/25 12:36
*ED COVID-19 Vaccine History Last Done: 06/26/25 12:36
ED-Musculoskeletal Assessment Last Done: 06/26/25 13:02
ED- Neurological Assessment Last Done: 06/26/25 13:02
ED-Skin Assessment Last Done: 06/26/25 13:02
Discharge Date and Time
Print Language: MAURITANIAN
== END 2025-06-26 17:37 | disposition home or self-care (01) ==
LOC: EMR 12:32
PROVIDERS: EMERGENCY PHYSICIAN Emergency Medicine; FAMILY PHYSICIAN Internal Medicine
DX: S83.91XA Sprain of unspecified site of right knee, initial encounter (principal); I50.9 Heart failure, unspecified; E78.00 Pure hypercholesterolemia, unspecified; G40.909 Epilepsy, unspecified, not intractable, without status epilepticus; K21.9 Gastro-esophageal reflux disease without esophagitis; F32.A Depression, unspecified; W19.XXXA Unspecified fall, initial encounter; Y92.099 Unspecified place in other non-institutional residence as the place of occurrence of the external cause
CPT/HCPCS: 99283; 73564

== ENCOUNTER → 2025-08-24 09:54 | Outpatient (REF) | payer OTHER, SELFPAY ==
[2025-08-24 12:02] LABS: Hematocrit 28.2 % (37.0-47.0); Hemoglobin 9.2 g/dL (12.0-16.0); Mean Corp Hgb Conc. 32.6 g/dL (33.0-37.0); Mean Corpuscular Volume 98.3 fL (81.0-99.0); Platelet Count 150 10^3/uL (130-400); Red Cell Dist. Width 15.9 % (11.5-14.5)
[2025-08-24 12:22] LABS: Blood Urea Nitrogen 31 mg/dl (7-17); Calcium 8.9 mg/dl (8.4-10.2); Carbon Dioxide 32 mmol/L (22-30); Chloride 102 mmol/L (98-107); Glucose 94 mg/dl (70-99); Potassium 3.8 mmol/L (3.5-5.1); Sodium 134 mmol/L (135-145); eGFR 56.60
== END ==
LOC: OLABP 09:54
PROVIDERS: ATTENDING PHYSICIAN Family Medicine
DX: N39.0 Urinary tract infection, site not specified (principal); R47.81 Slurred speech; G40.909 Epilepsy, unspecified, not intractable, without status epilepticus; E78.5 Hyperlipidemia, unspecified; D64.9 Anemia, unspecified; F32.A Depression, unspecified; I50.9 Heart failure, unspecified; M10.9 Gout, unspecified; R73.9 Hyperglycemia, unspecified
CPT/HCPCS: 36415; 80048; 80185; 85027

== ENCOUNTER → 2025-08-31 09:28 | Outpatient (REF) | payer BC, OTHER, SELFPAY ==
[2025-08-31 10:00] LABS: Hematocrit 28.7 % (37.0-47.0); Hemoglobin 9.6 g/dL (12.0-16.0); Mean Corp Hgb Conc. 33.4 g/dL (33.0-37.0); Mean Corpuscular Volume 98.0 fL (81.0-99.0); Nucleated Red Blood Cells % 0 %; Platelet Count 152 10^3/uL (130-400); Red Cell Dist. Width 16.2 % (11.5-14.5)
== END ==
LOC: OLABP 09:28
PROVIDERS: ATTENDING PHYSICIAN Family Medicine
DX: N39.0 Urinary tract infection, site not specified (principal); R47.81 Slurred speech; G40.909 Epilepsy, unspecified, not intractable, without status epilepticus; E78.5 Hyperlipidemia, unspecified; D64.9 Anemia, unspecified; F32.A Depression, unspecified; I50.9 Heart failure, unspecified; M10.9 Gout, unspecified; R73.9 Hyperglycemia, unspecified
CPT/HCPCS: 36415; 85025

== ENCOUNTER → 2025-09-01 10:18 | Outpatient (REF) | payer BC, OTHER, SELFPAY ==
[2025-09-01 11:03] LABS: Hematocrit 27.7 % (37.0-47.0); Hemoglobin 9.4 g/dL (12.0-16.0); Mean Corp Hgb Conc. 33.9 g/dL (33.0-37.0); Mean Corpuscular Volume 97.2 fL (81.0-99.0); Nucleated Red Blood Cells % 0 %; Platelet Count 149 10^3/uL (130-400); Red Cell Dist. Width 16.0 % (11.5-14.5)
== END ==
LOC: OLABP 10:18
PROVIDERS: ATTENDING PHYSICIAN Family Medicine
DX: E78.5 Hyperlipidemia, unspecified (principal); D64.9 Anemia, unspecified; N39.0 Urinary tract infection, site not specified; R47.81 Slurred speech; G40.909 Epilepsy, unspecified, not intractable, without status epilepticus; I50.9 Heart failure, unspecified
CPT/HCPCS: 36415; 85025

== ENCOUNTER → 2025-09-11 11:02 | Outpatient (REF) | payer BC, OTHER, SELFPAY ==
[2025-09-11 11:23] LABS: Hematocrit 28.0 % (37.0-47.0); Hemoglobin 8.9 g/dL (12.0-16.0); Mean Corp Hgb Conc. 31.8 g/dL (33.0-37.0); Mean Corpuscular Volume 103.3 fL (81.0-99.0); Nucleated Red Blood Cells % 0 %; Platelet Count 178 10^3/uL (130-400); Red Cell Dist. Width 16.9 % (11.5-14.5)
== END ==
LOC: OLABP 11:02
PROVIDERS: ATTENDING PHYSICIAN Family Medicine
DX: N39.0 Urinary tract infection, site not specified (principal); R47.81 Slurred speech; G40.909 Epilepsy, unspecified, not intractable, without status epilepticus; E78.5 Hyperlipidemia, unspecified; D64.9 Anemia, unspecified; F32.A Depression, unspecified; I50.9 Heart failure, unspecified; M10.9 Gout, unspecified; R73.9 Hyperglycemia, unspecified
CPT/HCPCS: 36415; 85025

== ENCOUNTER → 2025-09-15 09:10 | Outpatient (REF) | payer BC, OTHER, SELFPAY ==
[2025-09-15 10:30] LABS: Hematocrit 28.6 % (37.0-47.0); Hemoglobin 9.2 g/dL (12.0-16.0); Mean Corp Hgb Conc. 32.2 g/dL (33.0-37.0); Mean Corpuscular Volume 101.4 fL (81.0-99.0); Nucleated Red Blood Cells % 0.4 %; Platelet Count 166 10^3/uL (130-400); Red Cell Dist. Width 16.6 % (11.5-14.5)
== END ==
LOC: OLABP 09:10
PROVIDERS: ATTENDING PHYSICIAN Family Medicine
DX: N39.0 Urinary tract infection, site not specified (principal); R47.81 Slurred speech; G40.909 Epilepsy, unspecified, not intractable, without status epilepticus; E78.5 Hyperlipidemia, unspecified; F32.A Depression, unspecified; I50.9 Heart failure, unspecified; M10.9 Gout, unspecified; R73.9 Hyperglycemia, unspecified
CPT/HCPCS: 36415; 85025